=== PATIENT | female | born 1990 | race Two or more races ===

== ENCOUNTER 2018-10-16 22:23 | Emergency (ER) | payer SELFPAY ==
[2018-10-16] MEDS ORDERED: RINGERS SOLUTION,LACTATED 1,000 ML IV ONE (22:46)
[2018-10-16] MEDS ORDERED: ACETAMINOPHEN 325 MG TABLET PO ONE (22:46)
[2018-10-16 23:50] LABS: ABSOLUTE LYMPHOCYTES (AUTO) 0.9 10^3/uL (0.5-4.7); ABSOLUTE MONOCYTES (AUTO) 0.7 10^3/uL (0.1-1.4); ABSOLUTE NEUT (AUTO) 8.3 10^3/uL (1.7-8.2); BASOPHILS % (AUTO) 0.4 % (0-2); HEMATOCRIT 33.5 % (36.0-47.0); HEMOGLOBIN 10.8 g/dL (12.0-15.5); LYMPHOCYTES % (AUTO) 8.9 % (13-45); MEAN CORPUSCULAR HEMOGLOBIN 23.3 pg (27.0-33.4); MEAN CORPUSCULAR HGB CONC 32.3 g/dL (32.0-36.0); MEAN CORPUSCULAR VOLUME 72 fl (80-97); PLATELET COUNT 232 10^3/uL (150-450); RED BLOOD COUNT 4.65 10^6/uL (3.72-5.28); RED CELL DISTRIBUTION WIDTH 16.2 % (11.5-14.0); SEGMENTED NEUTROPHILS % (AUTO) 83.7 % (42-78); TOTAL CELLS COUNTED % (AUTO) 100 %
[2018-10-16 23:53] LABS: APPEARANCE,URINE SLIGHTLY-CLOUDY; BILIRUBIN,URINE NEGATIVE (NEGATIVE); COLOR,URINE YELLOW; GLUCOSE, URINE NEGATIVE (NEGATIVE); KETONES,URINE NEGATIVE (NEGATIVE); LEUKOCYTE ESTERASE,URINE NEGATIVE (NEGATIVE); NITRITE,URINE NEGATIVE (NEGATIVE); PROTEIN,URINE NEGATIVE (NEGATIVE); URINE SPECIFIC GRAVITY 1.013; UROBILINOGEN,URINE NEGATIVE mg/dL (<2.0)
[2018-10-17 00:07] LABS: ALANINE AMINOTRANSFERASE 25 U/L (9-52); ALBUMIN 3.6 g/dL (3.5-5.0); ALKALINE PHOSPHATASE 72 U/L (38-126); ANION GAP 9 (5-19); ASPARTATE AMINO TRANSFERASE 17 U/L (14-36); BILIRUBIN,DIRECT 0.2 mg/dL (0.0-0.4); BILIRUBIN,TOTAL 0.4 mg/dL (0.2-1.3); BLOOD UREA NITROGEN 11 mg/dL (7-20); CALCIUM 9.1 mg/dL (8.4-10.2); CARBON DIOXIDE 24 mmol/L (22-30); CHLORIDE 103 mmol/L (98-107); GLUCOSE 157 mg/dL (75-110); POTASSIUM 3.8 mmol/L (3.6-5.0); SODIUM 136.1 mmol/L (137-145); TOTAL PROTEIN 6.6 g/dL (6.3-8.2)
[2018-10-17 00:18] VITALS: BP 114/58
--- NOTE | 2018-10-17 00:35 | ER Document Report ---
ED General - General Chief Complaint: Fever Stated Complaint: FEVER,VOMITING,BODY ACHES Time Seen by Provider: 10/16/18 22:45 Notes: Patient is otherwise healthy 28-year-old female presents to the emergency department for 24 hours of nausea, vomiting, diarrhea, headache, Subjective fever. Patient states she has had one episode of vomiting and up to 10 episodes of diarrhea denying blood in both. States she felt warm today but then had chil ls which concerned her and why she presents to the emergency room. Patient's initially complaining of generalized cramping "all over" her abdomen. Patient is denying any URI symptoms, chest pain, shortness of breath, dysuria, vaginal discharge. Last menstrual cycle 09/21/2018 Patient's only surgical history section delivery. - Related Data Allergies/Adverse Reactions: No Known Allergies Allergy (Unverified 10/17/18 00:08) Past Medical History - General Information source: Patient - Social History Smoking Status: Never Smoker Family History: Reviewed & Not Pertinent Patient has suicidal ideation: No Patient has homicidal ideation: No Renal/ Medical History: Denies: Hx Peritoneal Dialysis Review of Systems - Review of Systems Constitutional: See HPI EENT: See HPI Cardiovascular: See HPI Respiratory: See HPI Gastrointestinal: See HPI Genitourinary: See HPI Female Genitourinary: See HPI Musculoskeletal: No symptoms reported Skin: No symptoms reported Hematologic/Lymphatic: No symptoms reported Neurological/Psychological: See HPI Physical Exam - Vital signs Vitals: Temp Pulse Resp BP Pulse Ox 101.9 F H 136 H 18 121/60 97 10/16/18 22:31 10/16/18 22:31 10/16/18 22:31 10/16/18 22:31 10/16/18 22:31 - Notes Notes: GENERAL: Alert, interacts well. No acute distress. HEAD: Normocephalic, atraumatic. EYES: Pupils equal, round, and reactive to light. Extraocular movements intact. ENT: Oral mucosa moist, tongue midline. Nares patent, TM's intact nonerythematous, nonbulging bilaterally. Pharynx within normal limits no palatal petechiae noted, NECK: Full range of motion. Supple. Trachea midline. No nuchal rigidity noted LUNGS: Clear to auscultation bilaterally, no wheezes, rales, or rhonchi. No respiratory distress. HEART: Tachycardic rate and rhythm. No murmur ABDOMEN: Soft, non-tender. Non-distended. Bowel sounds present in all 4 quadrants. Patient admits to intermittent lower abdominal cramping, no McBurney's point tenderness, no Bautista sign noted. EXTREMITIES: Moves all 4 extremities spontaneously. No edema, normal radial and dorsalis pedis pulses bilaterally. No cyanosis. BACK: no cervical, thoracic, lumbar midline tenderness. No saddle anesthesia, normal distal neurovascular exam. NEUROLOGICAL: Alert and oriented x3. Normal speech. cranial nerves II through XII grossly intact PSYCH: Normal affect, normal mood. SKIN: Warm, dry, normal turgor. No rashes or lesions noted. Course - Re-evaluation Re-evalutation: 10/17/18 00:38 Laboratory 10/16/18 10/16/18 10/16/18 23:25 23:25 23:25 WBC 10.0 RBC 4.65 Hgb 10.8 L Hct 33.5 L MCV 72 L MCH 23.3 L MCHC 32.3 RDW 16.2 H Plt Count 232 Seg Neutrophils % 83.7 H Lymphocytes % 8.9 L Monocytes % 7.0 Eosinophils % 0.0 Basophils % 0.4 Absolute Neutrophils 8.3 H Absolute Lymphocytes 0.9 Absolute Monocytes 0.7 Absolute Eosinophils 0.0 Absolute Basophils 0.0 Sodium 136.1 L Potassium 3.8 Chloride 103 Carbon Dioxide 24 Anion Gap 9 BUN 11 Creatinine 0.67 Est GFR ( Amer) > 60 Est GFR (Non-Af Amer) > 60 Glucose 157 H Calcium 9.1 Total Bilirubin 0.4 Direct Bilirubin 0.2 Neonat Total Bilirubin Not Reportable Neonat Direct Bilirubin Not Reportable Neonat Indirect Bili Not Reportable AST 17 ALT 25 Alkaline Phosphatase 72 Total Protein 6.6 Albumin 3.6 Urine Color YELLOW Urine Appearance SLIGHTLY-CLOUDY Urine pH 6.0 Ur Specific [place] 1.013 Urine Protein NEGATIVE Urine Glucose (UA) NEGATIVE Urine Ketones NEGATIVE Urine Blood SMALL H Urine Nitrite NEGATIVE Urine Bilirubin NEGATIVE Urine Urobilinogen NEGATIVE Ur Leukocyte Esterase NEGATIVE Urine WBC (Auto) 0 Urine RBC (Auto) 1 Squamous Epi Cells Auto 2 Urine Mucus (Auto) RARE Urine Ascorbic Acid NEGATIVE Urine HCG, Qual NEGATIVE Patient's labs are consistent with a hypochromic microcytic anemia. Discussed use of iron and Colace for continued care. Patient voices she is uninsured. Discussed close follow-up at [facility] for [facility] for continued care. Patient's labs show no signs of leukocytosis. Her abdominal pain Is intermittent, crampy and upon reexamination patient denies any pain. Patient is no specific McBurney's point tenderness. I do not feel as though CT imaging is warranted at this time. Discussed close return precautions should her abdominal pain return, become localized to her right lower quadrant or she have any other concerns. Patient voices understanding, stable for discharge. - Vital Signs Vital signs: Temp Pulse Resp BP Pulse Ox 99.9 F 98 18 114/58 L 98 10/17/18 00:18 10/17/18 00:18 10/17/18 00:18 10/17/18 00:18 10/17/18 00:18 - Laboratory Result Diagrams: 10/16/18 23:25 10/16/18 23:25 Laboratory results interpreted by me: 10/16/18 10/16/18 10/16/18 23:25 23:25 23:25 Hgb 10.8 L Hct 33.5 L MCV 72 L MCH 23.3 L RDW 16.2 H Seg Neutrophils % 83.7 H Lymphocytes % 8.9 L Absolute Neutrophils 8.3 H Sodium 136.1 L Glucose 157 H Urine Blood SMALL H Discharge - Discharge Clinical Impression: Nausea vomiting and diarrhea Fever Qualifiers: Fever type: unspecified Qualified Code(s): R50.9 - Fever, unspecified Anemia Qualifiers: Anemia type: unspecified type Qualified Code(s): D64.9 - Anemia, unspecified Condition: Stable Disposition: HOME, SELF-CARE Instructions: Antinausea Medication ([facility]), Diarrhea, Nonspecific ([facility]), Intravenous (IV) Fluids ([facility]), Vomiting ([facility]), Viral Syndrome ([facility]), Anemia, Ir on Deficiency ([facility]) Additional Instructions: As we discussed you have been seen and treated in the emergency department for your vomiting, diarrhea, fever, and anemia. Please make sure you take antinausea medication as prescribed. Please also make sure he stay well-hydrat ed and take prescription medications as prescribed. As we discussed I have provided phone numbers for [facility] in [facility] for you to follow-up with her primary care provider. Please return to the emergency room for any other concerns. Prescriptions: Docusate Sodium [Colace 100 mg Capsule] 100 mg PO DAILY #30 capsule Ferrous Sulfate [Mol-Iron] 195 mg PO DAILY #30 tablet Referrals: [facility] [Provider Group] - Follow up as needed [facility] [Provider Group] - Follow up as needed
== END 2018-10-17 01:05 | disposition home or self-care (01) ==
LOC: ER 22:23
DX: R11.2 Nausea with vomiting, unspecified (principal); R19.7 Diarrhea, unspecified; R50.9 Fever, unspecified; D50.9 Iron deficiency anemia, unspecified; M79.10 Myalgia, unspecified site; R51 Headache
CPT/HCPCS: 99283; 36415; 87086; 85025; 81025; 80053; 81001; J7120

== ENCOUNTER 2019-02-28 20:10 | Emergency (ER) | payer SELFPAY ==
[2019-02-28] MEDS ORDERED: ACETAMINOPHEN 325 MG TABLET PO ONE ×2 (20:22→23:29)
[2019-02-28] MEDS ORDERED: IBUPROFEN 800 MG TABLET PO ONE (20:24)
--- NOTE | 2019-02-28 20:28 | ER Document Report ---
ED Medical Screen (RME) - General Chief Complaint: Abdominal Pain Stated Complaint: NAUSEA,FEVER Time Seen by Provider: 02/28/19 20:23 Mode of Arrival: Ambulatory Information source: Patient Notes: This 28-year-old female presents emergency department with complaints of bilateral flank pain pain with void started 3 days ago. Fever started today. Reports nausea and vomited prior to arrival. I have greeted and performed a rapid initial assessment of this patient. A comprehensive ED assessment and evaluation of the patient, analysis of test results and completion of the medical decision making process will be conducted by additional ED providers. Dictation of this chart was performed using voice recognition software; therefore, there may be some unintended grammatical errors. TRAVEL OUTSIDE OF THE [place] IN LAST 30 DAYS: No - Related Data Allergies/Adverse Reactions: No Known Allergies Allergy (Verified 02/28/19 20:11) Past Medical History Renal/ Medical History: Denies: Hx Peritoneal Dialysis Physical Exam - Vital signs Vitals: Temp Pulse Resp BP Pulse Ox 103.0 F H 122 H 18 129/72 H 96 02/28/19 20:20 02/28/19 20:20 02/28/19 20:20 02/28/19 20:20 02/28/19 20:20 Course - Vital Signs Vital signs: Temp Pulse Resp BP Pulse Ox 103.0 F H 122 H 18 129/72 H 96 02/28/19 20:20 02/28/19 20:20 02/28/19 20:20 02/28/19 20:20 02/28/19 20:20
[2019-02-28] MEDS ORDERED: PHENAZOPYRIDINE HCL 200 MG TABLET PO ONE (20:30)
[2019-02-28] MEDS ORDERED: ONDANSETRON 4 MG TAB.RAPDIS PO ONE (20:31)
[2019-02-28 20:58] LABS: ABSOLUTE BASOPHILS # (AUTO) 0.1 10^3/uL (0.0-0.2); ABSOLUTE LYMPHOCYTES (AUTO) 1.6 10^3/uL (0.5-4.7); ABSOLUTE MONOCYTES (AUTO) 0.7 10^3/uL (0.1-1.4); ABSOLUTE NEUT (AUTO) 8.1 10^3/uL (1.7-8.2); BASOPHILS % (AUTO) 0.6 % (0-2); EOSINOPHILS % (AUTO) 0.2 % (0-6); HEMATOCRIT 39.2 % (36.0-47.0); HEMOGLOBIN 12.8 g/dL (12.0-15.5); LYMPHOCYTES % (AUTO) 15.4 % (13-45); MEAN CORPUSCULAR HEMOGLOBIN 23.8 pg (27.0-33.4); MEAN CORPUSCULAR HGB CONC 32.7 g/dL (32.0-36.0); MEAN CORPUSCULAR VOLUME 73 fl (80-97); PLATELET COUNT 260 10^3/uL (150-450); RED BLOOD COUNT 5.38 10^6/uL (3.72-5.28); RED CELL DISTRIBUTION WIDTH 15.7 % (11.5-14.0); SEGMENTED NEUTROPHILS % (AUTO) 76.8 % (42-78); TOTAL CELLS COUNTED % (AUTO) 100 %; WHITE BLOOD COUNT 10.5 10^3/uL (4.0-10.5)
[2019-02-28 21:13] LABS: APPEARANCE,URINE CLEAR; BILIRUBIN,URINE NEGATIVE (NEGATIVE); COLOR,URINE YELLOW; GLUCOSE, URINE NEGATIVE (NEGATIVE); KETONES,URINE NEGATIVE (NEGATIVE); LEUKOCYTE ESTERASE,URINE TRACE (NEGATIVE); NITRITE,URINE NEGATIVE (NEGATIVE); PROTEIN,URINE NEGATIVE (NEGATIVE); URINE SPECIFIC GRAVITY 1.012; UROBILINOGEN,URINE NEGATIVE mg/dL (<2.0)
[2019-02-28 22:06] LABS: ALBUMIN 4.3 g/dL (3.5-5.0); ALKALINE PHOSPHATASE 85 U/L (38-126); ANION GAP 13 (5-19); ASPARTATE AMINO TRANSFERASE 23 U/L (14-36); BILIRUBIN,DIRECT 0.2 mg/dL (0.0-0.4); BILIRUBIN,TOTAL 0.3 mg/dL (0.2-1.3); BLOOD UREA NITROGEN 8 mg/dL (7-20); CALCIUM 9.3 mg/dL (8.4-10.2); CARBON DIOXIDE 23 mmol/L (22-30); CHLORIDE 100 mmol/L (98-107); GLUCOSE 189 mg/dL (75-110); POTASSIUM 3.8 mmol/L (3.6-5.0); TOTAL PROTEIN 7.6 g/dL (6.3-8.2)
[2019-02-28] MEDS ORDERED: NORMAL SALINE 1000 ML 1,000 ML IV ONE ×2 (22:07→23:54)
--- NOTE | 2019-02-28 22:09 | ER Document Report ---
HPI - HPI Patient complains to provider of: bilat flank pain, fever, vomiting, dysuria, abdominal pain x 3 days Time Seen by Provider: 02/28/19 20:23 Onset: Other - last few days Onset/Duration: Gradual, Intermittent, Waxing and waning Quality of pain: Cramping, Sharp Severity: Moderate Pain Level: 4 Context: 28 Yr old female patient, with the listed pmh, here for bilat R>L upper abdominal pain x 3 days, intermittently, also some fever today and one episode of nonbloody nonbloody vomiting today. also has some dysuria and frequency. no other uti sx. No abdominal surgeries other than a remote . No history of ovarian cysts, fibroids, endometriosis, or renal stones. Normal bowel movements. No other UTI symptoms. No URI symptoms. No recent antibiotics or steroids. No history of diabetes or asthma. No vaginal di scharge/complaints/lesions or concerns for STDs and does not want a pelvic exam. No ripping or tearing sensation. Hasn't taken anything for her symptoms other than remote tylenol. none recently. No excessive NSAID use, Tylenol use, or EtOH. No prior history of gallbladder disease, pancreatitis, ulcers, GI bleed, GERD, IBS, Crohn's, or UC. no change in color or caliber or stool. no blood thinners. no fall or trauma. no other associated sx. she is on her menses now. Exacerbated by: Sitting, Food Relieved by: Remaining still Similar symptoms previously: Yes Recently seen / treated by doctor: No - ROS Systems Reviewed and Negative: Yes All other systems reviewed and negative - to include 10 systems, unless mentioned in the hpi - REPRODUCTIVE LMP: 02/05/19 Reproductive: DENIES: : Past Medical History - General Information source: Patient - Social History Smoking Status: Current Every Day Smoker Chew tobacco use (# tins/day): No Frequency of alcohol use: Rare Drug Abuse: None Lives with: Family Family History: Reviewed & Not Pertinent Patient has suicidal ideation: No Patient has homicidal ideation: No - Medical History Medical History: Negative Renal/ Medical History: Denies: Hx Peritoneal Dialysis - Immunizations Immunizations up to date: Yes Vertical Provider Document - CONSTITUTIONAL Exam Limitations: No Limitations Notes: >>>> PHYSICAL_EXAM: GENERAL_APPEARANCE: well_nourished, alert, cooperative, no_acute_distress, mild_obvious_discomfort. Pleasant, obese young female, smiling, speaking in full sentences, in no sign of resp distress, easily sitting up, appears uncomfortable but not toxic. family at bedside VITALS: reviewed, see vital signs table. HEAD: normocephalic, atraumatic. no sierra signs. no raccoon eyes. EYES: PERRL, EOMI, (-)scleral icterus. NOSE: no_nasal_discharge. MOUTH: (-)decreased moisture. THROAT: no_tonsilar_inflammation/hypertrophy/exudate NECK: supple, no_neck_tenderness, full rom. full strength. no meningeal signs. BACK: no midline_back_tenderness. no step offs or deformities CHEST_WALL: no_chest_tenderness. LUNGS: no_wheezing, (-)accessory muscle use, good air exchange bilateral. HEART: slightly tachy_rate, normal_rhythm, ABDOMEN: normal_BS, soft, abdomen-diffuse, obese abd, mild-mod ttp in the luq, epigastrium, and ruq, (-)guarding, (-)rebound, no distension or peritoneal signs. neg murphys. neg mcburneys. no cva tenderness. neg heel strike. neg obturator. neg psoas. neg rovsign. PELVIC: deferred by pt RECTAL: deferred EXTREMITIES: strength 5/5 in all_extremities, good pulses in all_extremities, no_edema, no_swelling\tenderness. full rom. normal gait. good hand farm mechanic. brisk cap refill. SKIN: warm, dry, good_color, no_rash. no grossly visible overlying skin changes to suggest trauma NEURO: motor_intact, sensory_intact. cranial nerves 2-12 intact, cerebellar fxn intact MENTAL_STATUS: normal_affect, speech_clear, oriented_X_3, responds_appropriately to questions. - INFECTION CONTROL TRAVEL OUTSIDE OF THE [place] IN LAST 30 DAYS: No Course - Re-evaluation Re-evalutation: 03/01/19 00:18 Pt here for epigastric, left upper quadrant, right upper quadrant abdominal pain along with fever, and an episode of vomiting and some UTI symptoms. She did come in with a fever of 103 and was tachycardic on arrival. Fever and vitals normalized after antipyretics, nausea medicine, and fluids. She was pain and nausea control. Her labs were unremarkable. her upreg was neg. Her urine ap pears it may be the start of a UTI. She was given Rocephin here. Gallbladder ultrasound showed cholelithiasis without acute cholecystitis but was otherwise negative per radiology read by myself. CT stone survey was negative for anything acute per radiology and reviewe by myself. Patient informed of her findings. We will treat this like pyelo. Will treat her for symptomatic control. We will discharge her with a few Vicodin, Zofran, and Keflex. Gave strict return precautions. gave medication precautions. Serial abdominal exams remain benign. She is much improved on reexam and tolerating p.o. on reexam. ucx pending. advised to f/u with pcp/surg in 1-2 days. return for any worsening symptoms. vss. well appearing. satting well on ra. neurononfocal. pt understands and agrees to plan. On reexam, pt improved with tx listed. remained stable. nontoxic. well appearing. pain controlled. tolerating po. requesting to go home. serial abd exams remain benign case discussed with ER Attending, Dr. rivera, who directed and agrees with plan of care and advised no further workup indicated at this time and pt is stable for dc home with close f/u with pcp/specialist. Documentation achieved through voice recording which may lead to some occasional accidental typographical errors. Extensive efforts have been made to proof read documentation to make sure these are the least as possible. Category Date Time Status NPO (ED) NOW Care 02/28/19 22:33 Active Saline Lock (ED) NOW Care 02/28/19 20:14 Active Vital Signs (ED) STAT Care 02/28/19 23:[address] ABD/PELVIS NO ORAL OR IV [CT] Stat Exams 02/28/19 22:31 Completed Gallbladder Ultrasound [U/S ABDOMEN LIMITED W/O DOP] [ Exams 02/28/19 22:31 Completed US] Stat ACETAMINOPHEN [CHEM] Stat Lab 02/28/19 23:29 Ordered BLOOD CULTURE [MC] Stat Lab 02/28/19 23:42 Uncollected CBC WITH DIFF [HEME] Stat Lab 02/28/19 20:48 Completed COMPREHENSIVE METABOLIC PANEL [CHEM] Stat Lab 02/28/19 20:48 Completed HCG QUALITATIVE, URINE [URIN] Stat Lab 02/28/19 20:30 Completed LIPASE [CHEM] Stat Lab 02/28/19 20:48 Completed Lactic [LACTIC ACID SEPSIS] [CHEM] Stat Lab 02/28/19 20:48 Completed URINALYSIS [URIN] Stat Lab 02/28/19 20:30 Completed URINE CULTURE [MC] Stat Lab 02/28/19 20:30 Received Acetaminophen [Tylenol 325 mg Tablet] Med 02/28/19 20:22 Discontinued 975 mg PO NOW ONE Acetaminophen [Tylenol 325 mg Tablet] Med 02/28/19 23:29 Discontinued 975 mg PO NOW ONE CEFTRIAXONE 1 GM RTU IVPB (NOW) Med 02/28/19 23:42 Ordered Ceftriaxone 1 gm/D5w RTU [Rocephin RTU 1 gm/D5w 50 ml Premix] 1 gm in 50 ml IV NOW Ibuprofen [Motrin 800 mg Tablet] Med 02/28/19 20:24 Discontinued 800 mg PO NOW ONE Morphine Sulfate [Morphine 10 mg/ml Inj] Med 02/28/19 22:32 Discontinued 4 mg IV NOW ONE Normal Saline 1000 ml [NaCl 0.9% 1000 ml IV Soln] 1,000 Med 02/28/19 22:07 Discontinued ml IV BOLUS Normal Saline 1000 ml [NaCl 0.9% 1000 ml IV Soln] 1,000 Med 02/28/19 23:54 Ordered ml IV BOLUS Ondansetron HCl/Pf [Zofran Inj/Pf 4 mg/2 ml Sdv] Med 02/28/19 22:33 Discontinued 4 mg IV NOW ONE Ondansetron [Zofran Odt 4 mg Tablet] Med 02/28/19 20:31 Discontinued 4 mg PO NOW ONE Phenazopyridine HCl [Pyridium 200 mg Tablet] Med 02/28/19 20:30 Discontinued 200 mg PO NOW ONE - Vital Signs Vital signs: Temp Pulse Resp BP Pulse Ox 103.0 F H 122 H 18 129/72 H 96 02/28/19 20:20 02/28/19 20:20 02/28/19 20:20 02/28/19 20:20 02/28/19 20:20 03/01/19 00:22 Temp Pulse Pulse Resp BP BP Pulse Ox 02/28/19 23:14 102 F H 02/28/19 22:09 102.5 F H 100 20 111/68 100 09/17/19 20:20 103.0 F H 122 H 18 129/72 H 96 - Laboratory Result Diagrams: 02/28/19 20:48 02/28/19 20:48 Laboratory results interpreted by me: 02/28/19 02/28/19 02/28/19 20:30 20:48 20:48 RBC 5.38 H MCV 73 L MCH 23.8 L RDW 15.7 H Sodium 136.4 L Glucose 189 H Urine Blood MODERATE H Ur Leukocyte Esterase TRACE H 03/01/19 00:22 Labs- Entire Visit 02/28/19 02/28/19 02/28/19 20:30 20:48 20:48 WBC 10.5 RBC 5.38 H Hgb 12.8 Hct 39.2 MCV 73 L MCH 23.8 L MCHC 32.7 RDW 15.7 H Plt Count 260 Lymph % (Auto) 15.4 [place] % (Auto) 7.0 Eos % (Auto) 0.2 Baso % (Auto) 0.6 Absolute Neuts (auto) 8.1 Absolute Lymphs (auto) 1.6 Absolute Monos (auto) 0.7 Absolute Eos (auto) 0.0 Absolute Basos (auto) 0.1 Seg Neutrophils % 76.8 Sodium 136.4 L Potassium 3.8 Chloride 100 Carbon Dioxide 23 Anion Gap 13 BUN 8 Creatinine 0.76 Est GFR ( Amer) > 60 Est GFR (MDRD) Non-Af > 60 Glucose 189 H Lactic Acid Calcium 9.3 Total Bilirubin 0.3 Direct Bilirubin 0.2 Neonat Total Bilirubin Not Reportable Neonat Direct Bilirubin Not Reportable Neonat Indirect Bili Not Reportable AST 23 ALT 18 Alkaline Phosphatase 85 Total Protein 7.6 Albumin 4.3 Lipase 105.6 Urine Color YELLOW Urine Appearance CLEAR Urine pH 6.0 Ur Specific [place] 1.012 Urine Protein NEGATIVE Urine Glucose (UA) NEGATIVE Urine Ketones NEGATIVE Urine Blood MODERATE H Urine Nitrite NEGATIVE Urine Bilirubin NEGATIVE Urine Urobilinogen NEGATIVE Ur Leukocyte Esterase TRACE H Urine WBC (Auto) 8 Urine RBC (Auto) 6 Urine Bacteria (Auto) 1+ Squamous Epi Cells Auto 1 Urine Mucus (Auto) RARE Urine Ascorbic Acid NEGATIVE Urine HCG, Qual NEGATIVE Acetaminophen 02/28/19 02/28/19 20:48 20:48 WBC RBC Hgb Hct MCV MCH MCHC RDW Plt Count Lymph % (Auto) [place] % (Auto) Eos % (Auto) Baso % (Auto) Absolute Neuts (auto) Absolute Lymphs (auto) Absolute Monos (auto) Absolute Eos (auto) Absolute Basos (auto) Seg Neutrophils % Sodium Potassium Chloride Carbon Dioxide Anion Gap BUN Creatinine Est GFR ( Amer) Est GFR (MDRD) Non-Af Glucose Lactic Acid 2.1 Calcium Total Bilirubin Direct Bilirubin Neonat Total Bilirubin Neonat Direct Bilirubin Neonat Indirect Bili AST ALT Alkaline Phosphatase Total Protein Albumin Lipase Urine Color Urine Appearance Urine pH Ur Specific [place] Urine Protein Urine Glucose (UA) Urine Ketones Urine Blood Urine Nitrite Urine Bilirubin Urine Urobilinogen Ur Leukocyte Esterase Urine WBC (Auto) Urine RBC (Auto) Urine Bacteria (Auto) Squamous Epi Cells Auto Urine Mucus (Auto) Urine Ascorbic Acid Urine HCG, Qual Acetaminophen < 10 L - Diagnostic Test Radiology reviewed: Image reviewed, Reports reviewed Radiology results interpreted by me: 03/01/19 00:23 Abdomen Ultrasound 02/28/19 22:31 IMPRESSION: Fatty liver. Cholelithiasis. No sonographic evidence for cholecystitis copyright 2011 [employer]- All Rights Reserved Abdomen/Pelvis CT 02/28/19 22:31 IMPRESSION: No acute inflammatory process. No renal or ureteral calculi. Discharge - Discharge Clinical Impression: Pyelonephritis Cholelithiasis Qualifiers: Cholelithiasis location: gallbladder Cholecystitis presence: without cholecystitis Biliary obstruction: without biliary obstruction Qualified Code(s): K80.20 - Calculus of gallbladder without cholecystitis without obstruction Fever Qualifiers: Fever type: unspecified Qualified Code(s): R50.9 - Fever, unspecified Vomiting Qualifiers: Vomiting type: unspecified Vomiting Intractability: non-intractable Nausea presence: with nausea Qualified Code(s): R11.2 - Nausea with vomiting, unspecified Abdominal pain Qualifiers: Abdominal location: upper abdomen, unspecified Qualified Code(s): R10.10 - Upper abdominal pain, unspecified Condition: Good Disposition: HOME, SELF-CARE Instructions: Abdominal Pain ([facility]), Gallbladder Disease ([facility]), Pyelonephritis ([facility]) Additional Instructions: Follow-up with PCP/surg in 1 to 2 days. Return for any worsening symptoms. do not work, drive, operate machinery, or take tylenol with the pain meds. bland diet. drink plenty of fluids. we will call you with any abnormal results that require change in plan of care. take the medication as prescribed. Prescriptions: Ondansetron [Zofran Odt 4 mg Tablet] 4 mg PO Q8HP PRN #15 tab.rapdis PRN Reason: Cephalexin [Keflex] 500 mg PO QID 10 Days #40 capsule Hydrocodone/Acetaminophen [[place] 5-325 mg Tablet] 1 tab PO Q6 PRN #12 tablet PRN Reason: For Pain Forms: Return to Work
[2019-02-28] MEDS ORDERED: MORPHINE SULFATE 10 MG/ML INJ IV ONE (22:32)
[2019-02-28] MEDS ORDERED: ONDANSETRON HCL INJ/PF 4 MG/2 ML SDV IV ONE (22:33)
--- NOTE | 2019-02-28 23:19 | RADIOLOGY REPORT (SQ) ---
EXAM DESCRIPTION: US ABDOMEN LIMITED COMPLETED DATE/TME: 02/28/2019 22:31 CLINICAL HISTORY: 28 years, Female, bilat upper abd pain, uti sx, fever, vom COMPARISON: None. TECHNIQUE: Limited right upper quadrant ultrasound LIMITATIONS: None. FINDINGS: Echogenic appearance to the liver consistent with fatty infiltrative change. Cholelithiasis. Negative sonographic Bautista sign. No gallbladder wall thickening or pericholecystic fluid. CBD measures 2.8 mm. Visualized right kidney, abdominal aorta, inferior vena cava are unremarkable. No ascites IMPRESSION: Fatty liver. Cholelithiasis. No sonographic evidence for cholecystitis copyright 2010 [employer]- All Rights Reserved
--- NOTE | 2019-02-28 23:29 | RADIOLOGY REPORT (SQ) ---
CLINICAL HISTORY: bilat upper abd pain, uti sx, fever, vomiting. hcg neg. COMPARISON: None. TECHNIQUE: CT ABDOMEN PELVIS WITHOUT IV CONTRAST on 02/28/2019 10:31 PM CDT This exam was performed according to our departmental dose-optimization program, which includes automated exposure control, adjustment of the mA and/or kV according to patient size and/or use of iterative reconstruction technique. FINDINGS: Lower lungs are clear. Abdomen: Liver is diffusely enlarged and fatty in attenuation. There is no biliary dilatation. Gallbladder is normal in appearance. The pancreas and spleen are normal in appearance. The adrenal glands and kidneys are unremarkable. Abdominal aorta is normal in course and caliber without aneurysm. There is no free air. There is no retroperitoneal adenopathy. Pelvis: There is no bowel obstruction. Urinary bladder is unremarkable. There is no free fluid. Uterus is normal in size. Appendix is normal. Skeleton: There are no acute osseous findings. No suspicious bony lesions. IMPRESSION: No acute inflammatory process. No renal or ureteral calculi.
[2019-02-28] MEDS ORDERED: CEFTRIAXONE 1 GM/D5W RTU 1 GM/50 ML RTUPB IV ONE (23:42)
[2019-03-01 01:17] VITALS: BP 98/50
== END 2019-03-01 00:57 | disposition home or self-care (01) ==
LOC: ER 20:10
DX: N12 Tubulo-interstitial nephritis, not specified as acute or chronic (principal); K80.20 Calculus of gallbladder without cholecystitis without obstruction; R50.9 Fever, unspecified; R11.2 Nausea with vomiting, unspecified; R10.12 Left upper quadrant pain; R10.11 Right upper quadrant pain; R10.13 Epigastric pain; R30.0 Dysuria; R35.0 Frequency of micturition; E66.9 Obesity, unspecified; R10.816 Epigastric abdominal tenderness; R10.812 Left upper quadrant abdominal tenderness; R10.811 Right upper quadrant abdominal tenderness; F17.200 Nicotine dependence, unspecified, uncomplicated; K76.0 Fatty (change of) liver, not elsewhere classified
CPT/HCPCS: 36415; 87040; 87086; 83690; 80307; 85025; 81025; 87088; 80053; 81001; 83605; 76705; 74176; S0119; J2270; J3490; J2405; J7030 ×2; J0696

== ENCOUNTER 2019-06-03 11:34 | Emergency (ER) | payer OTHER ==
[2019-06-03] MEDS ORDERED: ONDANSETRON 4 MG TAB.RAPDIS PO ONE (12:36)
--- NOTE | 2019-06-03 12:40 | ER Document Report ---
ED Medical Screen (RME) - General Chief Complaint: Abdominal Pain Stated Complaint: ABDOMINAL PAIN Time Seen by Provider: 06/03/19 12:34 Mode of Arrival: Ambulatory Information source: Patient Notes: 29-year-old female patient presents emergency department chief complaint of epigastric pain. Patient reports pain ongoing for several months, worse after she eats. She was diagnosed with gallstones here a few months ago. Patient reports nausea with one episode of vomiting but denies any diarrhea or fever. Exam: Tenderness noted to the upper abdomen over the epigastric area. I have greeted and performed a rapid initial assessment of this patient. A comprehensive ED assessment and evaluation of the patient, analysis of test results and completion of the medical decision making process will be conducted by additional ED providers. I have specifically instructed the patient or family members with the patient to immediately return to any nursing staff should anything change in the patient's condition or with their chief complaint. This medical record was dictated with voice recognizing software. There may be grammatical, syntax errors that are unintended. TRAVEL OUTSIDE OF THE [place] IN LAST 30 DAYS: No - Related Data Allergies/Adverse Reactions: No Known Allergies Allergy (Verified 02/28/19 20:11) Past Medical History Renal/ Medical History: Denies: Hx Peritoneal Dialysis - Immunizations Immunizations up to date: Yes Physical Exam - Vital signs Vitals: Temp Pulse Resp BP Pulse Ox 97.9 F 79 20 114/72 100 06/03/19 11:39 06/03/19 11:39 06/03/19 11:39 06/03/19 11:39 06/03/19 11:39 Course - Vital Signs Vital signs: Temp Pulse Resp BP Pulse Ox 97.9 F 79 20 114/72 100 06/03/19 11:39 06/03/19 11:39 06/03/19 11:39 06/03/19 11:39 06/03/19 11:39
[2019-06-03 13:25] LABS: ABSOLUTE BASOPHILS # (AUTO) 0.1 10^3/uL (0.0-0.2); ABSOLUTE EOSINOPHILS # (AUTO) 0.2 10^3/uL (0.0-0.6); ABSOLUTE LYMPHOCYTES (AUTO) 2.8 10^3/uL (0.5-4.7); ABSOLUTE MONOCYTES (AUTO) 0.3 10^3/uL (0.1-1.4); ABSOLUTE NEUT (AUTO) 7.3 10^3/uL (1.7-8.2); BASOPHILS % (AUTO) 0.7 % (0-2); EOSINOPHILS % (AUTO) 1.5 % (0-6); HEMATOCRIT 39.3 % (36.0-47.0); HEMOGLOBIN 12.8 g/dL (12.0-15.5); LYMPHOCYTES % (AUTO) 26.4 % (13-45); MEAN CORPUSCULAR HEMOGLOBIN 24.2 pg (27.0-33.4); MEAN CORPUSCULAR HGB CONC 32.6 g/dL (32.0-36.0); MEAN CORPUSCULAR VOLUME 74 fl (80-97); MONOCYTES % (AUTO) 2.6 % (3-13); PLATELET COUNT 266 10^3/uL (150-450); RED BLOOD COUNT 5.28 10^6/uL (3.72-5.28); RED CELL DISTRIBUTION WIDTH 15.7 % (11.5-14.0); SEGMENTED NEUTROPHILS % (AUTO) 68.8 % (42-78); TOTAL CELLS COUNTED % (AUTO) 100 %; WHITE BLOOD COUNT 10.5 10^3/uL (4.0-10.5)
--- NOTE | 2019-06-03 13:32 | RADIOLOGY REPORT (SQ) ---
EXAM DESCRIPTION: U/S ABDOMEN LIMITED W/O DOP COMPLETED DATE/TIME: 06/03/2019 1:17 pm REASON FOR STUDY: epigastric pain, RUQ pain COMPARISON: 02/28/2019 TECHNIQUE: Dynamic and static grayscale images acquired of the abdomen and recorded on PACS. [employer] joe selected color Doppler and spectral images recorded. LIMITATIONS: None. FINDINGS: PANCREAS: No masses. Visualized pancreatic duct normal caliber. LIVER: Fatty echotexture. No focal masses. LIVER VASCULATURE: Normal directional flow of the main portal vein and hepatic veins. GALLBLADDER: Gallstones. ULTRASOUND-DETECTED MELENDEZ'S SIGN: Negative. INTRAHEPATIC DUCTS AND COMMON DUCT: CBD and intrahepatic ducts normal caliber. No filling defects. INFERIOR VENA CAVA: Normal flow. AORTA: No aneurysm. RIGHT KIDNEY: Normal size. Normal echogenicity. No solid or suspicious masses. No hydronephrosis. No calcifications. PERITONEAL AND RIGHT PLEURAL SPACE: No ascites or effusions. OTHER: No other significant findings. IMPRESSION: Gallstones. Fatty liver. TECHNICAL DOCUMENTATION: JOB ID: [id number] [employer]- All Rights Reserved Reading location - IP/workstation name: [email or web address]
[2019-06-03 13:53] LABS: ALBUMIN 4.3 g/dL (3.5-5.0); ALKALINE PHOSPHATASE 87 U/L (38-126); ANION GAP 15 (5-19); ASPARTATE AMINO TRANSFERASE 25 U/L (14-36); BILIRUBIN,DIRECT 0.1 mg/dL (0.0-0.4); BILIRUBIN,TOTAL 0.5 mg/dL (0.2-1.3); BLOOD UREA NITROGEN 13 mg/dL (7-20); CALCIUM 9.2 mg/dL (8.4-10.2); CARBON DIOXIDE 26 mmol/L (22-30); CHLORIDE 99 mmol/L (98-107); GLUCOSE 187 mg/dL (75-110); TOTAL PROTEIN 7.8 g/dL (6.3-8.2)
[2019-06-03 14:46] LABS: AMORPHOUS SEDIMENT,URINE 1+ /HPF; APPEARANCE,URINE TURBID; BILIRUBIN,URINE NEGATIVE (NEGATIVE); COLOR,URINE YELLOW; GLUCOSE, URINE 150 mg/dL (NEGATIVE); KETONES,URINE NEGATIVE (NEGATIVE); LEUKOCYTE ESTERASE,URINE NEGATIVE (NEGATIVE); NITRITE,URINE NEGATIVE (NEGATIVE); PROTEIN,URINE NEGATIVE (NEGATIVE); URINE SPECIFIC GRAVITY 1.027; UROBILINOGEN,URINE NEGATIVE mg/dL (<2.0)
--- NOTE | 2019-06-03 15:20 | ER Document Report ---
ED GI/ - General Chief Complaint: Abdominal Pain Stated Complaint: ABDOMINAL PAIN Time Seen by Provider: 06/03/19 12:34 Mode of Arrival: Ambulatory Notes: 29-year-old female patient presents emergency department chief complaint of epigastric pain. Patient reports pain ongoing for several months, worse after she eats. She was diagnosed with gallstones here a few months ago. Patient reports nausea with one episode of vomiting but denies any diarrhea or fever. TRAVEL OUTSIDE OF THE [place] IN LAST 30 DAYS: No - Related Data Allergies/Adverse Reactions: No Known Allergies Allergy (Verified 02/28/19 20:11) Past Medical History - General Information source: Patient - Social History Smoking Status: Never Smoker Chew tobacco use (# tins/day): No Frequency of alcohol use: None Drug Abuse: None Family History: Reviewed & Not Pertinent Patient has suicidal ideation: No Patient has homicidal ideation: No Renal/ Medical History: Denies: Hx Peritoneal Dialysis - Immunizations Immunizations up to date: Yes Review of Systems - Review of Systems Constitutional: See HPI EENT: No symptoms reported Cardiovascular: No symptoms reported Respiratory: No symptoms reported Gastrointestinal: See HPI Genitourinary: See HPI Female Genitourinary: No symptoms reported Musculoskeletal: No symptoms reported Skin: No symptoms reported Hematologic/Lymphatic: No symptoms reported Neurological/Psychological: No symptoms reported Physical Exam - Vital signs Vitals: Temp Pulse Resp BP Pulse Ox 97.9 F 79 20 114/72 100 06/03/19 11:39 06/03/19 11:39 06/03/19 11:39 06/03/19 11:39 06/03/19 11:39 - Notes Notes: PHYSICAL EXAMINATION: Reviewed vital signs and charting by RN GENERAL: Alert, interacts well. No acute distress. HEAD: Normocephalic, atraumatic. EYES: Pupils equal and round. Extraocular movements intact. ENT: Oral mucosa moist, tongue midline. NECK: Full range of motion. Trachea midline. LUNGS: Clear to auscultation bilaterally, no wheezes, rales, or rhonchi. No respiratory distress. HEART: Regular rate and rhythm. No murmur ABDOMEN: soft, right upper quadrant tenderness to palpation, negative Bautista sign. No distention. Bowel sounds present EXTREMITIES: Moves all 4 extremities spontaneously. No edema, No cyanosis. PSYCH: Normal affect, normal mood. SKIN: Warm, dry, normal turgor. No rashes or lesions noted. Course - Re-evaluation Re-evalutation: 06/03/19 15:21 Well-appearing in no acute distress, afebrile, vital signs within normal limits. Nursing notes reviewed. Patient with known gallstones which showed again on right upper quadrant ultrasound. No evidence of common bile duct dilatation or gallbladder wall thickening to be worried about cholecystitis. Patient states her epigastric pain is unlike her previous visit when she was diagnosed with gallstones. I do suspect that patient has gastritis. I am going to give her a dose of pantoprazole here in the emergency department and a prescription for pantoprazole 40 mg daily. Also, I spoke with Dr. Hammonds who agrees that she can follow-up outpatient. At this time patient is stable for discharge. - Vital Signs Vital signs: Temp Pulse Resp BP Pulse Ox 97.9 F 79 20 114/72 100 06/03/19 12:00 06/03/19 11:39 06/03/19 12:00 06/03/19 11:39 06/03/19 12:00 - Laboratory Result Diagrams: 06/03/19 12:55 06/03/19 12:55 Laboratory results interpreted by me: 06/03/19 06/03/19 06/03/19 12:55 12:55 12:55 MCV 74 L MCH 24.2 L RDW 15.7 H Bowie % (Auto) 2.6 L Glucose 187 H Urine Glucose (UA) 150 H Discharge - Discharge Clinical Impression: Epigastric pain Cholelithiasis Qualifiers: Cholelithiasis location: gallbladder Cholecystitis presence: without cholecystitis Biliary obstruction: without biliary obstruction Qualified Code(s): K80.20 - Calculus of gallbladder without cholecystitis without obstruction Condition: Good Disposition: HOME, SELF-CARE Additional Instructions: You were seen for pain in your abdomen that is likely related to gallstones and possible gastritis. Your work-up today does not show any signs that you need to have your gallbladder removed tonight. However, you will likely need surgery as an outpatient in the coming weeks. Please contact the surgery clinic on Wednesday morning to discuss the need for further evaluation and consideration of surgery. Also, the pain in your stomach I feel is related to gastritis. You have been given a dose of Protonix here in the emergency department so please do not eat anything or drink anything for 60 minutes following taking it. Also, I have given you a prescription for pantoprazole and, like we discussed, take it first thing in the morning with a little bit of water and do not eat or drink ANYTHING for 45 to 60 minutes following taking it to allow it to start working. If you start to see symptom relief after 3 to 5 days that her symptoms are probably due to gastritis. It is okay to take the pantoprazole for a few weeks at a time with "holidays" of 1 to 2 weeks in between where you take a break from taking it. Please call the [facility] first thing Wednesday to figure out what it takes to establish care there. They are a great community resource and provide primary care for the uninsured. Return to the ED immediately if you develop worsening pain, persistent vomiting, become unable to tolerate fluids, have a fever of >1004, or any other symptoms that are concerning to you. Forms: Return to Work Referrals: KEELY HAMMONDS MD [ACTIVE STAFF] - 06/05/19
[2019-06-03] MEDS ORDERED: ONDANSETRON ODT 4 MG TAB (6 TAB/ER DISP) PO PRN (15:28)
[2019-06-03] MEDS ORDERED: PANTOPRAZOLE SODIUM 40 MG TABLET.DR PO ONE (15:29)
[2019-06-03 15:47] VITALS: BP 116/72
== END 2019-06-03 15:49 | disposition home or self-care (01) ==
LOC: ER 11:34
DX: R10.13 Epigastric pain (principal); K80.20 Calculus of gallbladder without cholecystitis without obstruction
CPT/HCPCS: 99284; 36415; 83690; 84703; 85025; 80053; 81001; 76705; S0119; J3490